=== PATIENT | male | born 1965 | race Two or more races ===

== ENCOUNTER 2018-10-10 12:54 | Outpatient (CLI) | payer MEDICAID ==
[2018-10-10] MEDS ORDERED: UNOBMED (15:17)
--- NOTE | 2018-10-10 21:15 | Consultation ---
DATE OF CONSULTATION: 10/10/2018 CHIEF COMPLAINT: Referral for screening colonoscopy. PAST MEDICAL HISTORY: 1. Gastritis. 2. Hypertension. PAST SURGICAL HISTORY: None. MEDICATION: Medication for high blood pressure. FAMILY HISTORY: No family history of GI malignancies. SOCIAL HISTORY: The patient drinks beer about 2 to 3 day. Denies any tobacco or IV drug abuse. ALLERGIES: No known allergies. REVIEW OF SYSTEMS: A 10-point review of systems was performed and pertinent positives in HPI. PHYSICAL EXAMINATION: GENERAL: This is a well-developed male in no acute distress. VITAL SIGNS: Stable. Afebrile. HEENT: Normocephalic and atraumatic. Sclerae anicteric. NECK: Supple. No evidence of obvious lymphadenopathy. CARDIOVASCULAR: Regular rate and rhythm. Plus S1 and S2. No obvious murmur. LUNGS: Decreased breath sounds bilaterally based on supine examination. ABDOMEN: Soft and nontender. No rebound. No guarding. No peritoneal sign. EXTREMITIES: No cyanosis, no clubbing, no edema. ASSESSMENT: The patient is a 53-year-old male referred for screening colonoscopy. The patient was given instruction for a colonoscopy. All of his questions were answered. The risks and benefits of procedure was explained to him, he agreed to it so we will plan to get authorization and schedule him . Scot Felix M.D. DR: [place] JOB#: [id number] CC:
== END 2018-10-10 14:54 | disposition home or self-care (01) ==
LOC: PAN 12:54
DX: Z01.818 Encounter for other preprocedural examination (principal); I10 Essential (primary) hypertension
CPT/HCPCS: 99202